=== PATIENT | male | born 1990 | race Hispanic/Latino ===

== ENCOUNTER 2024-03-09 10:22 | Emergency (ER) | payer BC, OTHER, SELFPAY ==
[2024-03-09] MEDS ORDERED: Fluorescein Opthalmic Strip ONE (10:33)
[2024-03-09] MEDS ORDERED: Tetracaine 0.5% PF 4 ML BOT ONE (10:33)
[2024-03-09] MEDS ORDERED: HYDROcodone/Acetaminophen 5/325 mg Tablet ONE (10:50)
== END 2024-03-09 10:54 | disposition home or self-care (01) ==
LOC: BURERS 10:22
DX: T15.02XA Foreign body in cornea, left eye, initial encounter (principal); H57.11 Ocular pain, right eye; F17.210 Nicotine dependence, cigarettes, uncomplicated
CPT/HCPCS: 65220; 99283